=== PATIENT | female | born 1940 | race Two or more races ===

== ENCOUNTER 2023-02-14 22:54 | Observation (INO) | payer OTHER ==
[2023-02-15 00:57] LABS: BASO % 0.5 % (0-2.0); EOS % 1.2 % (0-4.5); HEMATOCRIT 37.5 % (32.4-45.2); HEMOGLOBIN 12.7 GM/dL (10.7-15.3); LYMPH % 13.1 % (8-40); MCH 32.2 pg (25.7-33.7); MCHC 33.7 g/dl (32.0-36.0); MEAN CELL VOLUME 95.4 fl (80-96); MEAN PLT VOLUME 9.8 fl (7.5-11.1); MONO % 9.1 % (3.8-10.2); NEUT % 76.1 % (42.8-82.8); PLATELET COUNT 228 10^3/uL (134-434); RBC 3.93 M/mm3 (3.60-5.2); RDW 14.4 % (11.6-15.6); WHITE BLOOD COUNT 6.6 K/mm3 (4.0-10.0)
[2023-02-15 01:15] LABS: CHLORIDE 96 mmol/L (98-107); POTASSIUM 4.1 mmol/L (3.5-5.1); SODIUM 132 mmol/L (136-145)
[2023-02-15 01:18] LABS: ALBUMIN 3.4 g/dl (3.4-5.0); ANION GAP 6 mmol/L (4-13); BLOOD UREA NITROGEN 7.5 mg/dL (7-18); CO2 30 mmol/L (21-32)
[2023-02-15 01:21] LABS: CREATININE 0.9 mg/dL (0.55-1.3); SGPT/ALT 34 U/L (13-61)
[2023-02-15 01:22] LABS: SGOT/AST 17 U/L (15-37)
[2023-02-15 01:23] LABS: BILIRUBIN,TOTAL 0.4 mg/dL (0.2-1); TOT PROT 6.7 g/dl (6.4-8.2)
[2023-02-15 01:24] LABS: ALK PHOS 125 U/L (45-117)
[2023-02-15 01:51] LABS: GLUCOSE,RANDOM 536 mg/dL (74-106)
[2023-02-15] MEDS ORDERED: INSULIN (NOVOLOG MIX 70/30) 100 UNITS/ML MDV SQ ONE ×3 (02:02→02:48)
[2023-02-15] MEDS ORDERED: INSULIN REGULAR HUMAN 100 UNITS/ML *VIAL IVPUSH ONE ×2 (02:10→02:52)
[2023-02-15] MEDS ORDERED: SODIUM CHLORIDE 1,000 ML IV STA (02:11)
[2023-02-15 03:15] LABS: VENOUS BASE EXCESS 2.7 mmol/L (-2-2); VENOUS O2 SATURATION 67.6 % (70-80); VENOUS PCO2 44.9 mmHg (38-52); VENOUS PH 7.41 (7.310-7.410)
[2023-02-15 06:37] LABS: URINE APPEARANCE CLEAR; URINE BILIRUBIN NEGATIVE (NEGATIVE); URINE COLOR YELLOW; URINE GLUCOSE (UA) 1+ (NEGATIVE); URINE KETONE NEGATIVE (NEGATIVE); URINE LEUK ESTERASE NEGATIVE (NEGATIVE); URINE NITRITE NEGATIVE (NEGATIVE); URINE PROTEIN NEGATIVE (NEGATIVE); URINE UROBILINOGEN 0.2 mg/dL (0.2-1.0)
[2023-02-15] MEDS: INSULIN SLIDING SCALE (NOVOLOG) 1 VIAL SQ SCH ×3 (06:57→16:10)
[2023-02-15] MEDS: SODIUM CHLORIDE 1,000 ML IV SCH ×3 (06:57→22:19)
[2023-02-15] MEDS ORDERED: INSULIN (LEVEMIR) 100 UNITS/ML UNITS SQ ONE (07:00)
[2023-02-15] MEDS ORDERED: DEXTROSE 50%-WATER 25 GM/50 ML DISP.SYRIN IVPUSH PRN (07:57)
[2023-02-15] MEDS ORDERED: LIPASE/PROTEASE/AMYLASE 36,000 UNIT CAPSULE PO SCH (08:00)
[2023-02-15] MEDS: LIPASE/PROTEASE/AMYLASE 6,000 UNIT CAPSULE PO SCH ×3 (09:06→17:37)
[2023-02-15] MEDS: EZETIMIBE 10 MG TABLET (FP) PO SCH (09:44)
[2023-02-15] MEDS: HYDROCHLOROTHIAZIDE 25 MG TABLET (FP) PO SCH (09:44)
[2023-02-15] MEDS: PANTOPRAZOLE 40 MG TABLET PO SCH (09:44)
[2023-02-15] MEDS: ENOXAPARIN NA (PORCINE) 40 MG/0.4 ML DISP.SYRIN SQ SCH (09:50)
[2023-02-15 09:55] LABS: BASO % 0.2 % (0-2.0); EOS % 0.3 % (0-4.5); HEMATOCRIT 38.1 % (32.4-45.2); HEMOGLOBIN 12.8 GM/dL (10.7-15.3); LYMPH % 6.6 % (8-40); MCH 32.3 pg (25.7-33.7); MCHC 33.7 g/dl (32.0-36.0); MEAN CELL VOLUME 95.7 fl (80-96); MEAN PLT VOLUME 9.4 fl (7.5-11.1); NEUT % 85.9 % (42.8-82.8); PLATELET COUNT 228 10^3/uL (134-434); RBC 3.98 M/mm3 (3.60-5.2); RDW 14.6 % (11.6-15.6); WHITE BLOOD COUNT 9.5 K/mm3 (4.0-10.0)
[2023-02-15 10:29] LABS: POTASSIUM 3.3 mmol/L (3.5-5.1)
[2023-02-15 10:34] LABS: ALBUMIN 3.5 g/dl (3.4-5.0); CALCIUM 9.2 mg/dL (8.5-10.1); MAGNESIUM 1.8 mg/dL (1.8-2.4)
[2023-02-15 10:37] LABS: CREATININE 0.6 mg/dL (0.55-1.3); PHOSPHOROUS 2.9 mg/dL (2.5-4.9)
[2023-02-15 10:38] LABS: TOT PROT 6.8 g/dl (6.4-8.2)
[2023-02-15 10:39] LABS: BILIRUBIN,TOTAL 0.4 mg/dL (0.2-1)
[2023-02-15] MEDS ORDERED: POTASSIUM CHLORIDE TABS 20 MEQ TABLET.ER (FP) PO ONE (11:18)
[2023-02-15 11:22] LABS: MAGNESIUM 1.7 mg/dL (1.8-2.4)
[2023-02-15] MEDS ORDERED: INSULIN (LEVEMIR) 100 UNITS/ML UNITS SQ SCH (22:00)
[2023-02-16] MEDS: SODIUM CHLORIDE 1,000 ML IV SCH (04:33)
[2023-02-16] MEDS: ACETAMINOPHEN 325 MG TABLET (FP) PO PRN (06:56)
[2023-02-16] MEDS: INSULIN SLIDING SCALE (NOVOLOG) 1 VIAL SQ SCH ×3 (06:56→16:55)
[2023-02-16] MEDS ORDERED: INSULIN (LEVEMIR) 100 UNITS/ML UNITS SQ SCH (08:04)
[2023-02-16] MEDS: LIPASE/PROTEASE/AMYLASE 6,000 UNIT CAPSULE PO SCH ×3 (08:52→16:56)
[2023-02-16] MEDS: ENOXAPARIN NA (PORCINE) 40 MG/0.4 ML DISP.SYRIN SQ SCH (09:12)
[2023-02-16] MEDS: PANTOPRAZOLE 40 MG TABLET PO SCH (09:12)
[2023-02-16] MEDS: HYDROCHLOROTHIAZIDE 25 MG TABLET (FP) PO SCH (09:12)
[2023-02-16] MEDS: ALLOPURINOL 100 MG TABLET (FP) PO SCH (09:12)
[2023-02-16] MEDS: EZETIMIBE 10 MG TABLET (FP) PO SCH (09:13)
[2023-02-16 09:32] LABS: HEMATOCRIT 36.4 % (32.4-45.2); HEMOGLOBIN 12.1 GM/dL (10.7-15.3); MCH 32.1 pg (25.7-33.7); MCHC 33.3 g/dl (32.0-36.0); MEAN CELL VOLUME 96.3 fl (80-96); MEAN PLT VOLUME 9.4 fl (7.5-11.1); PLATELET COUNT 242 10^3/uL (134-434); RBC 3.78 M/mm3 (3.60-5.2); RDW 14.5 % (11.6-15.6); WHITE BLOOD COUNT 7.2 K/mm3 (4.0-10.0)
[2023-02-16 09:58] LABS: POTASSIUM 3.8 mmol/L (3.5-5.1)
[2023-02-16 10:00] LABS: CALCIUM 8.9 mg/dL (8.5-10.1)
[2023-02-16 10:01] LABS: ALBUMIN 2.9 g/dl (3.4-5.0); BLOOD UREA NITROGEN 7.4 mg/dL (7-18); MAGNESIUM 1.6 mg/dL (1.8-2.4)
[2023-02-16 10:03] LABS: PHOSPHOROUS 3.7 mg/dL (2.5-4.9)
[2023-02-16 10:04] LABS: CREATININE 0.5 mg/dL (0.55-1.3)
[2023-02-16 10:05] LABS: BILIRUBIN,TOTAL 0.4 mg/dL (0.2-1)
[2023-02-16 16:20] VITALS: RESP 18
[2023-02-16] MEDS ORDERED: MAGNESIUM 1GM/D5W 100ML - 100 ML IVPB IVPB ONE (16:51)
[2023-02-17] MEDS: INSULIN SLIDING SCALE (NOVOLOG) 1 VIAL SQ SCH ×2 (06:12→11:53)
[2023-02-17] MEDS: SODIUM CHLORIDE 1,000 ML IV SCH (06:15)
[2023-02-17] MEDS: LIPASE/PROTEASE/AMYLASE 6,000 UNIT CAPSULE PO SCH ×2 (08:16→11:54)
[2023-02-17] MEDS: HYDROCHLOROTHIAZIDE 25 MG TABLET (FP) PO SCH (09:12)
[2023-02-17] MEDS: ALLOPURINOL 100 MG TABLET (FP) PO SCH (09:12)
[2023-02-17] MEDS: EZETIMIBE 10 MG TABLET (FP) PO SCH (09:12)
[2023-02-17] MEDS: PANTOPRAZOLE 40 MG TABLET PO SCH (09:12)
[2023-02-17] MEDS: ENOXAPARIN NA (PORCINE) 40 MG/0.4 ML DISP.SYRIN SQ SCH (09:12)
[2023-02-17] MEDS: ACETAMINOPHEN 325 MG TABLET (FP) PO PRN (09:27)
[2023-02-17 09:54] LABS: HEMATOCRIT 37.3 % (32.4-45.2); HEMOGLOBIN 12.4 GM/dL (10.7-15.3); MCHC 33.4 g/dl (32.0-36.0); MEAN CELL VOLUME 95.9 fl (80-96); PLATELET COUNT 264 10^3/uL (134-434); RBC 3.89 M/mm3 (3.60-5.2); RDW 14.3 % (11.6-15.6); WHITE BLOOD COUNT 6.6 K/mm3 (4.0-10.0)
[2023-02-17 10:42] LABS: POTASSIUM 3.4 mmol/L (3.5-5.1)
[2023-02-17 11:21] LABS: CALCIUM 9.2 mg/dL (8.5-10.1)
[2023-02-17 11:22] LABS: BLOOD UREA NITROGEN 8.8 mg/dL (7-18); MAGNESIUM 1.7 mg/dL (1.8-2.4)
[2023-02-17 11:24] LABS: PHOSPHOROUS 4.2 mg/dL (2.5-4.9)
[2023-02-17 11:25] LABS: CREATININE 0.5 mg/dL (0.55-1.3)
[2023-02-17 12:07] VITALS: BMI 18.1
[2023-02-17 16:15] VITALS: BP 138/63; PULSE 85; TEMP 97.8
== END 2023-02-17 16:25 | disposition home or self-care (01) ==
LOC: JER 22:54 → JERBED 02-15 03:34 → INTOOBSV 02-15 03:34 → J5S 02-15 05:43
PROVIDERS: ADMIT Internal Medicine; ATTEND Internal Medicine
PROC: 3E023GC Introduction of Other Therapeutic Substance into Muscle, Percutaneous Approach (ICD-10-PCS; principal; 2023-02-15)
PROC: 3E013VG Introduction of Insulin into Subcutaneous Tissue, Percutaneous Approach (ICD-10-PCS; 2023-02-15)
PROC: 3E033GC Introduction of Other Therapeutic Substance into Peripheral Vein, Percutaneous Approach (ICD-10-PCS; 2023-02-15)
PROC: 3E033GC Introduction of Other Therapeutic Substance into Peripheral Vein, Percutaneous Approach (ICD-10-PCS; 2023-02-15)
PROC: 3E0337Z Introduction of Electrolytic and Water Balance Substance into Peripheral Vein, Percutaneous Approach (ICD-10-PCS; 2023-02-15)
DX: E08.65 Diabetes mellitus due to underlying condition with hyperglycemia (principal); Z85.07 Personal history of malignant neoplasm of pancreas; I10 Essential (primary) hypertension; Z88.8 Allergy status to other drugs, medicaments and biological substances; E78.5 Hyperlipidemia, unspecified; Z95.0 Presence of cardiac pacemaker; K86.89 Other specified diseases of pancreas; C80.1 Malignant (primary) neoplasm, unspecified
CPT/HCPCS: 0241U-QW; 36415; 71045-TC-FY; 80048; 80053; 81003; 82010; 82803; 82962; 83036; 83735; 84100; 84484; 85025; 85027; 87086; 93005; 93010; 96361; 96372; 96374; 96375; 97116-GP; 97161-GP; 99285-25; G0378